=== PATIENT | female | born 1975 | race Caucasian/White ===

== ENCOUNTER 2020-06-21 11:31 | Outpatient (CLI) | payer OTHER ==
[~2020-06-21 11:31] MED LIST: METFORMIN HCL500 MG
== END 2020-06-21 11:42 | disposition home or self-care (01) ==
LOC: TOM 11:31
DX: Z20.828 Contact with and (suspected) exposure to other viral communicable diseases (principal); R05 Cough

== ENCOUNTER 2020-09-29 12:35 | Emergency (ER) | payer OTHER ==
[~2020-09-29] VITALS: Ht 165.1 cm; Wt 84.8 kg
== END 2020-09-29 14:38 | disposition home or self-care (01) ==
LOC: ER 12:35
DX: S91.332A Puncture wound without foreign body, left foot, initial encounter (principal); W45.0XXA Nail entering through skin, initial encounter; Y93.01 Activity, walking, marching and hiking; Y92.018 Other place in single-family (private) house as the place of occurrence of the external cause; Y99.8 Other external cause status

== ENCOUNTER 2021-05-06 10:55 | Outpatient (CLI) | payer OTHER | END 2021-05-06 11:15 | disposition home or self-care (01) | LOC: MAMO-SONO 10:55 | DX: N63.0 Unspecified lump in unspecified breast (principal); Z12.31 Encounter for screening mammogram for malignant neoplasm of breast ==

== ENCOUNTER 2021-08-16 21:55 | Emergency (ER) | payer OTHER ==
[~2021-08-16] VITALS: Ht 165.1 cm; Wt 86.2 kg
[2021-08-16] MEDS ORDERED: GLIMEPIRIDE4 MG (22:09)
[2021-08-16] MEDS ORDERED: NEURONTIN800 MG (22:10)
[2021-08-16] MEDS ORDERED: ASPIRINA (22:11)
== END 2021-08-17 | disposition home or self-care (01) ==
LOC: ER 21:55
DX: M94.0 Chondrocostal junction syndrome [Tietze] (principal); R07.89 Other chest pain

== ENCOUNTER 2022-02-23 17:16 | Emergency (ER) | payer OTHER ==
[~2022-02-23] VITALS: Ht 165.1 cm; Wt 88.5 kg
[~2022-02-23 17:16] MED LIST changes: +ASPIRINA; +GLIMEPIRIDE4 MG; +NEURONTIN800 MG
[2022-02-23] MEDS ORDERED: BUTALB-ASPIRIN1 EACH PO (19:54)
== END 2022-02-23 20:11 | disposition home or self-care (01) ==
LOC: ER 17:16
DX: G43.909 Migraine, unspecified, not intractable, without status migrainosus (principal); Z20.822 Contact with and (suspected) exposure to COVID-19